=== PATIENT | female | born 2005 | race Hispanic/Latino ===

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

== ENCOUNTER 2025-05-24 07:54 | Emergency (ER) | payer OTHER, SELFPAY ==
[2025-05-24 08:41] LABS: Influenza A Ag Negative; Influenza B Ag Negative; SARS-CoV-2 Antigen Rapid Res Negative (Negative)
--- NOTE | 2025-05-24 08:50 | EDPHYS ---
Physician Documentation [facility] Name: Tosin Mark Age: 20 yrs Sex: Female : 2005 Arrival Date: 05/24/2025 Time: 07:54 Bed IW1 Private MD: ED Physician Mahendra Kellogg HPI: 05/24 08:10 This 20 yrs old Female presents to ER via Unassigned with complaints of dr5 Congestion. 08:10 Onset: The symptoms/episode began/occurred 2 day(s) ago. Patient is a 20-year-old dr5 female with no past med history coming in with 2 days of cough, congestion, fever, sore throat that been going on for the past 2 days. Patient reports that she started going to school and has been around some sick people. Patient denies chest pain, abdominal pain, nausea, vomiting, constipation, diarrhea.. 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 - Infectious Disease History:: Denies. - Social history:: Smoking status: Patient denies any tobacco usage or history of. ROS: 08:10 Constitutional: as per hpi dr5 Exam: 08:10 Constitutional: This is a well developed, well nourished patient who is awake, alert, dr5 and in no acute distress. Head/Face: Normocephalic, atraumatic. Eyes: Pupils equal round and reactive to light, extra-ocular motions intact. Lids and lashes normal. Conjunctiva and sclera are non-icteric and not injected. Cornea within normal limits. Periorbital areas with no swelling, redness, or edema. Neck: Trachea midline, no thyromegaly or masses palpated, and no cervical lymphadenopathy. Supple, full range of motion without nuchal rigidity, or vertebral point tenderness. No Meningismus. Chest/axilla: Normal chest wall appearance and motion. Nontender with no deformity. No lesions are appreciated. Cardiovascular: Regular rate and rhythm with a normal S1 and S2. Normal PMI, no JVD. No pulse deficits. Respiratory: Lungs have equal breath sounds bilaterally, clear to auscultation. No rales, rhonchi or wheezes noted. No increased work of breathing, no retractions or nasal flaring. Back: No spinal tenderness. No costovertebral tenderness. Full range of motion. Skin: Warm, dry with normal turgor. Normal color with no rashes, no lesions, and no evidence of cellulitis. MS/ Extremity: Pulses equal, no cyanosis. Neurovascular intact. Full, normal range of motion. Neuro: Awake and alert, GCS 15, oriented to person, place, time, and situation. Cranial nerves II-XII grossly intact. Motor strength 5/5 in all extremities. Sensory grossly intact. Cerebellar exam normal. Normal gait. 08:10 ENT: 09:34 ENT: External ear(s): are unremarkable, Ear canal(s): are normal, no acute changes, dr5 TM's: are normal, no acute changes, Nose: is normal, no acute changes, Mouth: is normal, no acute changes, Posterior pharynx: Airway: normal, no evidence of obstruction, Tonsils: bilaterally enlarged, with erythema, Uvula: normal, swelling, is not appreciated, that is mild, Vital Signs: 08:09 BP 115 / 65; Pulse 80; Resp 18 S; Temp 99.5(O); Pulse Ox 100% on R/A; Weight 57.15 kg; iw Height 4 ft. 11 in. ; 08:09 Body Mass Index 25.45 (57.15 kg, 149.86 cm) iw MDM: 07:57 Medical Screening Exam initiated jessica 08:14 Medical Screening Exam initiated dr5 09:33 Differential diagnosis: viral Infection, bacterial infection, URI, Tonsillitis, Strep dr5 Throat, COVID, Flu. Data reviewed: vital signs, nurses notes, lab test result(s), Flu: negative Strep Negative, COVID negative. Consideration of Admission/Observation Escalation of care including admission/observation considered. 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 I considered the following discharge prescriptions or medication management in the emergency department I discussed and recommended Over The Counter medications, Medications were administered in the Emergency Department. See MAR. Historians other than the Patient: Parent: Mother. Care significantly affected by the following Social Determinants of Health: Poor access to healthcare and/or lack of insurance, Poor access to transportation, Problems related to employment. Counseling: I had a detailed discussion with the patient and/or guardian regarding the historical points, exam findings, and any diagnostic results supporting the discharge/admit diagnosis, the presence of at least one elevated blood pressure reading (>120/80) during this emergency department visit, lab results, the need for outpatient follow up, for definitive care, an ENT specialist, a family practitioner, to return to the emergency department if symptoms worsen or persist or if there are any questions or concerns that arise at home. Special discussion: Based on the patient's Hx, exam, and Dx evaluation, there is no indication for emergent surgery or inpatient Tx. It is understood by the patient/guardian that if the Sx's persist or worsen they need to return immediately for re-evaluation. I discussed with the patient/guardian in detail that at this point there is no indication for admission to the hospital. It is understood, however, that if the symptoms persist or worsen the patient needs to return immediately for re-evaluation. Based on the history and exam findings, there is no indication for further emergent testing or inpatient evaluation. I discussed with the patient/guardian the need to see the primary care provider for further evaluation of the symptoms. ED course: Patient's labs were negative. Will cover patient for tonsillitis with amoxicillin and give steroid Dosepak for information. All questions answered. Strict ER precautions given. Recommend increase hydration.. 05/24 07:58 Order name: COVID-19 Ag + Flu A+B Ag; Complete Time: 08:49 jessica 05/24 07:58 Order name: Group A Streptococcus Rapid; Complete Time: 08:31 jessica 05/24 08:33 Order name: Throat Culture EDMS Administered Medications: No medications were administered Disposition Summary: 05/24/25 08:49 Discharge Ordered Notes: Location: Home dr5 Condition: Stable dr5 Diagnosis - Acute tonsillitis, unspecified dr5 Followup: dr5 - With: Emergency Department - When: As needed - Reason: Worsening of condition Followup: dr5 - With: Private Physician - When: 1 - 2 days - Reason: Recheck today's complaints, Continuance of care, Re-evaluation by your physician Discharge Instructions: - Discharge Summary Sheet dr5 - Tonsillitis dr5 Forms: - School release form dr5 - Medication Reconciliation Form dr5 - Antibiotic Education dr5 - Patient Portal Instructions dr5 - Leadership Thank You Letter dr5 Prescriptions: - Amoxicillin 500 mg Oral capsule - take 1 capsule ORAL route every 12 hours for 10 days; 20 tablet; Refills: 0, dr5 Product Selection Permitted - Medrol (Manuelito) 4 mg Oral Tablets, Dose Pack - take 1 tablet ORAL route as directed - follow package instructions; 1 packet; dr5 Refills: 0, Product Selection Permitted Signatures: Dispatcher [employer] EDMahendra Samuel MD MD cha Williams, Irene, RN RN iw Mikey Tobias, EDITORIAL PROJECT MANAGER-C EDITORIAL PROJECT MANAGER-Cdr5 Corrections: (The following items were deleted from the chart) 09:35 08:10 Constitutional: This is a well developed, well nourished patient who is awake, dr5 alert, and in no acute distress. Head/Face: Normocephalic, atraumatic. Eyes: Pupils equal round and reactive to light, extra-ocular motions intact. Lids and lashes normal. Conjunctiva and sclera are non-icteric and not injected. Cornea within normal limits. Periorbital areas with no swelling, redness, or edema. Neck: Trachea midline, no thyromegaly or masses palpated, and no cervical lymphadenopathy. Supple, full range of motion without nuchal rigidity, or vertebral point tenderness. No Meningismus. Chest/axilla: Normal chest wall appearance and motion. Nontender with no deformity. No lesions are appreciated. Cardiovascular: Regular rate and rhythm with a normal S1 and S2. Normal PMI, no JVD. No pulse deficits. Respiratory: Lungs have equal breath sounds bilaterally, clear to auscultation. No rales, rhonchi or wheezes noted. No increased work of breathing, no retractions or nasal flaring. Back: No spinal tenderness. No costovertebral tenderness. Full range of motion. Skin: Warm, dry with normal turgor. Normal color with no rashes, no lesions, and no evidence of cellulitis. MS/ Extremity: Pulses equal, no cyanosis. Neurovascular intact. Full, normal range of motion. Neuro: Awake and alert, GCS 15, oriented to person, place, time, and situation. Cranial nerves II-XII grossly intact. Motor strength 5/5 in all extremities. Sensory grossly intact. Cerebellar exam normal. Normal gait. dr5
--- NOTE | 2025-05-24 08:50 | ER ---
Nurse's Notes [facility] Name: Tosin Mark Age: 20 yrs Sex: Female : 2005 Arrival Date: 05/24/2025 Time: 07:54 Bed IW1 Private MD: Diagnosis: Acute tonsillitis, unspecified Presentation: 05/24 08:09 Chief complaint: Patient states: flu like symptoms , congestion, sore throat X 2 days , iw + fever. Coronavirus screen: Client presents with at least one sign or symptom that may indicate coronavirus-19. Ebola Screen: No symptoms or risks identified at this time. Initial Sepsis Screen: Does the patient meet any 2 criteria? No. Patient's initial sepsis screen is negative. Does the patient have a suspected source of infection? No. Patient's initial sepsis screen is negative. Risk Assessment: Do you want to hurt yourself or someone else? Patient reports no desire to harm self or others. Onset of symptoms was May 22, 2025. 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 - Infectious Disease History:: Denies. - Social history:: Smoking status: Patient denies any tobacco usage or history of. Vital Signs: 08:09 BP 115 / 65; Pulse 80; Resp 18 S; Temp 99.5(O); Pulse Ox 100% on R/A; Weight 57.15 kg; iw Height 4 ft. 11 in. ; 08:09 Body Mass Index 25.45 (57.15 kg, 149.86 cm) iw ED Course: 07:56 Patient arrived in ED. mr 07:57 Mahendra Kellogg MD is Attending Physician. jessica 08:10 Mikey Tobias FNP-C is PHCP. dr5 08:10 Triage completed. iw 08:11 Arm band placed on. iw 09:26 No provider procedures requiring assistance completed. Patient did not have IV access jl7 during this emergency room visit. Administered Medications: No medications were administered Outcome: 08:49 Discharge ordered by . dr5 09:26 Discharged to home ambulatory, jl7 09: Condition: stable 09:26 Discharge instructions given to patient, Instructed on discharge instructions, follow up and referral plans. medication usage, Demonstrated understanding of instructions, follow-up care, medications, Prescriptions given X 2, discharged by ERP :27 Patient left the ED. jl7 Signatures: Mahendra Kellogg MD MD cha Rivera, Soha, Reg Reg mr Inés Carrillo, RN Dulce Boyd RN RN jl7 Mikey Tobias, RING MAKER-C RING MAKER-Cdr5
[2025-05-24 12:34] VITALS: BP 115/65; TEMP 99.5; O2SAT 100
== END 2025-05-24 09:27 | disposition home or self-care (01) ==
LOC: ER 07:54
DX: J03.90 Acute tonsillitis, unspecified (principal); Z11.52 Encounter for screening for COVID-19
CPT/HCPCS: 36415; 87070; 87428